=== PATIENT | male | born 1995 | race African-American/Black ===

== ENCOUNTER 2023-06-05 13:20 | Emergency (ER) | payer SELFPAY | END 2023-06-05 14:39 | disposition home or self-care (01) | LOC: JD.ED 13:20 | DX: L02.412 Cutaneous abscess of left axilla (principal); F17.210 Nicotine dependence, cigarettes, uncomplicated; E66.9 Obesity, unspecified; Z68.32 Body mass index [BMI] 32.0-32.9, adult | CPT/HCPCS: 99282; 99283 ==